=== PATIENT | male | born 1965 | race Caucasian/White ===

== ENCOUNTER 2016-06-23 10:59 | Emergency (ER) | payer MEDICAID ==
[~2016-06-23] VITALS: Ht 182.9 cm; Wt 72.0 kg
[2016-06-23 11:01] VITALS: BP 100/64
[2016-06-23] MEDS ORDERED: OXYcodone/APAP 5/325MG TABLET PO ONE (11:30)
[2016-06-23] MEDS ORDERED: OXYcodone/APAP 5/325MG TABLET ONE (11:31)
== END 2016-06-23 12:16 | disposition home or self-care (01) ==
LOC: ED 12:00
DX: S22.42XA Multiple fractures of ribs, left side, initial encounter for closed fracture (principal); F17.210 Nicotine dependence, cigarettes, uncomplicated; W19.XXXA Unspecified fall, initial encounter; Y93.89 Activity, other specified; Y92.89 Other specified places as the place of occurrence of the external cause; Y99.8 Other external cause status

== ENCOUNTER 2020-08-07 03:07 | Emergency (ER) | payer MEDICAID ==
[~2020-08-07] VITALS: Ht 182.9 cm; Wt 72.3 kg
--- NOTE | 2020-08-07 04:32 | NUR ---
PREPRESS TECHNICIAN: PT. TO ROOM FROM LOBBY AT THIS TIME.
--- NOTE | 2020-08-07 05:23 | NUR ---
PT STATES HE IS TRYING TO GET INTO REHAB FOR METH USE. ALSO USING HEROIN, BUT DOES NOT WANT TO STOP USING YET.
[2020-08-07] MEDS ORDERED: KETOROLAC 60 MG/2 ML ONE (05:33)
[2020-08-07 05:37] VITALS: BP 121/70
== END 2020-08-07 05:39 | disposition home or self-care (01) ==
LOC: ED 04:45
DX: F15.129 Other stimulant abuse with intoxication, unspecified (principal); F17.210 Nicotine dependence, cigarettes, uncomplicated
CPT/HCPCS: 99281; 99406

== ENCOUNTER 2020-09-16 22:11 | Emergency (ER) | payer SELFPAY ==
[~2020-09-16] VITALS: Ht 182.9 cm; Wt 67.6 kg
[2020-09-16 22:25] VITALS: BP 102/63
--- NOTE | 2020-09-16 22:41 | NUR ---
Patient given discharge instructions and they have confirmed that they understand the instructions. Patient ambulatory with steady gait. NAD, all questions answered appropriately, denies additional needs at this time. No personal belongings left in room after discharge.
== END 2020-09-16 22:42 | disposition home or self-care (01) ==
LOC: ED 22:39
DX: F51.01 Primary insomnia (principal); G47.9 Sleep disorder, unspecified; F15.10 Other stimulant abuse, uncomplicated; F17.210 Nicotine dependence, cigarettes, uncomplicated; Z72.6 Gambling and betting
CPT/HCPCS: 99283

== ENCOUNTER 2020-10-10 13:14 | Emergency (ER) | payer MEDICAID ==
[~2020-10-10] VITALS: Ht 182.9 cm; Wt 68.9 kg
[2020-10-10 13:32] VITALS: BP 109/62
== END 2020-10-10 18:30 | disposition left against medical advice (07) ==
LOC: ED 18:20
DX: M79.672 Pain in left foot (principal); M79.671 Pain in right foot
CPT/HCPCS: 99281